=== PATIENT | female | born 1995 | race Caucasian/White ===

== ENCOUNTER 2019-03-09 17:49 | Emergency (ER) | payer OTHER ==
[~2019-03-09] VITALS: Ht 160 cm; Wt 68.5 kg
[~2019-03-09 17:49] MED LIST: AMOXIL 875 MG875 M1 PO; AUGMENTIN 875875 M1 PO; AZITHROMYCIN 2250 MG PO; CIPROFLOXACIN500 M1 PO; NEXPLANON68 MG SQ; NOHOMEMEDICATIONS; PERCOCET 5-3251 EACH PO; PREDNISONE 20 M20 M1 PO; PYRIDIUM200 MG PO; TAMIFLU75 MG PO; TYLENOL325 MG PO
[2019-03-09 19:56] LABS: ABSOLUTE BASOPHILS 0.1 thou/uL (0.0-0.2); ABSOLUTE EOSINOPHILS 0.3 thou/uL (0.0-0.7); ABSOLUTE LYMPHOCYTES 3.5 thou/uL (0.8-5.3); ABSOLUTE MONOCYTES 0.9 thou/uL (0.0-1.2); ABSOLUTE NEUTROPHILS 10.4 thou/uL (1.6-8.1); BASOPHILS 0.8 %; EOSINOPHILS 1.9 %; HEMOGLOBIN 13.3 gm/dL (12.0-15.0); LYMPHOCYTES 22.8 %; MCH 27.9 pg (26.0-34.0); MCHC 34.2 g/dL (28.0-37.0); MCV 81.6 fL (80.0-100.0); MONOCYTES 6.1 %; MPV 7.8 fl. (7.2-11.1); NUCLEATED RBCS 0 /100WBC; PLATELET COUNT* 346 thou/uL (150-400); POLYS 68.4 %; RBC 4.78 mil/uL (4.20-5.00); RDW-CV 14.2 % (10.5-14.5); WBC 15.2 thou/uL (4.0-11.0)
[2019-03-09 20:03] LABS: CALCIUM 9.9 mg/dL (8.5-10.1); CREATININE 0.7 mg/dL (0.6-1.3); POTASSIUM 3.5 mmol/L (3.5-5.1)
[2019-03-09 20:08] LABS: TOTAL BILIRUBIN 0.2 mg/dL (<0.1-1.0)
[2019-03-09] MEDS ORDERED: TRINATE TABLET1 EACH PO (20:09)
[2019-03-09 20:12] LABS: URINE BILIRUBIN NEGATIVE (Negative); URINE BLOOD 3+ (Negative); URINE CLARITY CLEAR; URINE COLOR YELLOW; URINE GLUCOSE-RANDOM NEGATIVE (Negative); URINE KETONES 1+ (Negative); URINE LEUKOCYTES-REFLEX NEGATIVE (Negative); URINE NITRITE-REFLEX NEGATIVE (Negative); URINE PROTEIN NEGATIVE (Negative); URINE SPECIFIC GRAVITY <= 1.005 (1.005-1.030); URINE UROBILINOGEN 0.2 E.U./dl (0.2-1.0)
[2019-03-09 20:19] LABS: BACTERIA-REFLEX None Seen /HPF (None Seen); CASTS None Seen /LPF (None Seen); CRYSTALS None Seen /LPF (None Seen); SQUAMOUS 4-10 Moderate /LPF (0-3); URINE RBC 0-2 Rare /HPF (0-2); URINE WBC-REFLEX 0-5 Rare /HPF (0-5)
[2019-03-09 20:53] VITALS: BP 135/87
== END 2019-03-09 20:53 | disposition home or self-care (01) ==
LOC: M.ERS 17:49
PROVIDERS: Nurse Practitioner Family
DX: O46.91 Antepartum hemorrhage, unspecified, first trimester (principal); O00.01 Abdominal pregnancy with intrauterine pregnancy; Z3A.01 Less than 8 weeks gestation of pregnancy